=== PATIENT | female | born 1980 | race Hispanic/Latino ===

== ENCOUNTER 2018-06-28 20:55 | Inpatient (IN) | payer MEDICAID, OTHER, SELFPAY ==
[2018-06-28 21:29] VITALS: BMI 39.6
[2018-06-28] MEDS: Lactated Ringer's 1,000 ML IV SCH (21:45)
[2018-06-28] MEDS ORDERED: Promethazine HCl 25 MG/ML VIAL IM PRN (22:48)
[2018-06-28] MEDS ORDERED: Acetaminophen 500 MG TAB PO PRN (22:48)
[2018-06-28] MEDS ORDERED: Ondansetron HCl/PF 4 MG/2 ML Vial IVP PRN (22:48)
[2018-06-28] MEDS ORDERED: Lidocaine 1% (PF) 30 ML VIAL SC PRN (22:48)
[2018-06-28] MEDS ORDERED: NS / Oxytocin 40 units/1000ml 1,000 ML IV PRN (22:48)
[2018-06-28] MEDS ORDERED: Misoprostol 100 MCG TAB VAG SCH (23:00)
[2018-06-28 23:10] LABS: Hemoglobin 12.8 g/dL (12.0-16.0); Mean Corpuscular HGB CONC 35.5 g/dL (32.0-36.0); Mean Corpuscular Hemoglobin 32.5 pg (27.0-31.0); Mean Corpuscular Volume 91.5 fL (78.0-98.0); Mean Platelet Volume 9.7 fL (7.4-10.4); Platelet Count 147 thou/uL (130-400); RBC Distribution Width 12.6 % (11.5-14.5); Red Blood Cell (RBC) Count 3.94 mill/uL (4.20-5.40); White Blood Cell (WBC) Count 9.2 thou/uL (4.8-10.8)
[2018-06-28 23:34] LABS: Syphilis Antibody Nonreactive (Nonreactive); Syphilis Antibody Index 0.06 S/CO (<1.00 Non-Reactive)
[2018-06-28 23:45] LABS: HBSAg Index 0.19 S/CO (0-0.99); Hep B Surf Ag Non-Reactive S/CO (NonReactive)
--- NOTE | 2018-06-29 00:01 | PDOC.FPROB ---
FMR OB H&P: HPI - History of Present Illness Chief Complaint: Elective IOL Indentification: History of Present Illness: at at 40.1 here for elective IOL. Is seen at care clinic. Denies LOF, VB, endorses FB and contractions 10 times in one hour. Primary Care Physician: Dr. Simon FMR OB H&P: Current - Care : 4 Para: 1 Gestational age: 40.1 Due date: 06/27 Dating Criteria: 7wk sono - OB Labs Blood type: O RH: positive Antibody Screen: negative HIV: negative RPR: negative HepBsAg: negative Rubella: immune Quad screen: negative Gonorrhea: negative Chlamydia: negative (chlamydia negative (05/27)) Pap Smear: NILM, HPV negative 1 hour gtt: 190 3 hour GTT: 145 GBS: negative - Anatomy Survey Anatomy survey: no abnormalities noted FMR OB H&P: History - Past Medical History PMH: None - OB History OB History: 1. 1, 12 wks, SAB 2. 11/25/13, 39wks, VAVD for prolonged 2nd stage, PPROM w/o chorio, [id number] 3. 8/11/19, 8 wks, SAB - [employer]ER History [employer] History: 1. Pap smear: NILM, HPV negative - Surgical History Sx History: Denies - Social History Social History: Denies tobacco, etoh, drug use - Family History Family History: HTN, denies DM FMR OB H&P: Medications - Current Home Medications: Medication Instructions Recorded Confirmed Type Prenat Vit Comb.10/Iron/FA/DHA 1 each PO DAILY 11/24/13 06/28/18 History [PNV-OB with DHA Combo Pack] Allergies/Adverse Reactions: Allergies Allergy/AdvReac Type Severity Reaction Status Date / Time No Known Allergies Allergy Verified 06/28/18 21:58 FMR OB H&P: ROS - Review of Systems General: denies: fever/chills, weight/appetite/sleep changes Eyes: denies: eye pain, double vision ENT: denies: nasal congestion, rhinorrhea, sore throat Cardiovascular: reports: edema. denies: chest pain, palpitation Respiratory: denies: cough, congestion, shortness of breath Gastrointestinal: denies: abdominal pain, indigestion, nausea, vomiting, diarrhea, constipation Genitourinary (Female): reports: contractions. denies: vaginal bleeding, vaginal pressure Musculoskeletal: denies: pain, stiffness Neurologic: denies: syncope, headache Integumentary: denies: itching, rash Endocrine: denies: heat intolerance, polydipsia Hematologic/Lymphatic: denies: prolonged or excessive bleeding Psychological: denies: depression, anxiety FMR OB H&P: Vital Signs - Maternal Vital signs: Vital Signs - First Documented Temp Pulse Resp BP Pulse Ox 98.5 F 76 18 120/68 99 06/28/18 21:21 06/28/18 21:21 06/28/18 21:21 06/28/18 21:21 06/28/18 21:21 - Heart Tones Baseline: 145 Variability: moderate Acceleration: present Category: category 1 [place] contractions every: 4-min FMR OB H&P: Physical Exam - Physical Exam General: NAD, awake, alert and oriented HEENT: normocephalic and atraumatic, EOMI, MMM, no scleral icterus Neck: supple Chest: non-tender to palpation Heart: RRR, normal S1/S2, no murmurs/rubs/gallops General: CTAB, no respiratory distress, no wheezing, no retractions Abdomen: gravid, non-tender Musculoskeletal: pulses present, FROM in all four extremities Neurological: cranial nerves II through XII intact Skin: no rash, good tugor, capillary refill <2 seconds Lymphatic: no unusual bruising or bleeding, no purpura Psychiatric: normal mood and affect - Pelvic Exam Vulva: normal hair distribution SVE: cl/t/h Talavera score: 0 Presentation: cephalic FMR OB H&P: Results - Labs Lab results: Laboratory Results - last 24 hr 06/28/18 06/28/18 06/28/18 22:02 22:02 22:02 WBC RBC Hgb Hct MCV MCH MCHC RDW Plt Count MPV POC Glucose Syphilis IgG/IgM Ab Nonreactive Hep Bs Antigen Non-Reactive Blood Type O POSITIVE Antibody Screen NEGATIVE 06/28/18 06/28/18 22:02 23:01 WBC 9.2 RBC 3.94 L Hgb 12.8 Hct 36.1 MCV 91.5 MCH 32.5 H MCHC 35.5 RDW 12.6 Plt Count 147 MPV 9.7 POC Glucose 88 Syphilis IgG/IgM Ab Hep Bs Antigen Blood Type Antibody Screen FMR OB H&P: A/P - Problem List (1) Supervision of normal IUP (intrauterine ) in multigravida Current Visit: Yes Status: Acute Code(s): Z34.80 - ENCOUNTER FOR SUPRVSN OF NORMAL , UNSP TRIMESTER (2) AMA (advanced maternal age) multigravida 35+ Current Visit: Yes Status: Acute Code(s): O09.529 - SUPERVISION OF ELDERLY MULTIGRAVIDA, UNSPECIFIED TRIMESTER (3) GDM (gestational diabetes mellitus) Current Visit: Yes Status: Acute Code(s): O24.419 - GESTATIONAL DIABETES MELLITUS IN , UNSP CONTROL Disposition: 37 yo at 40.1 here for elective IOL 1. sIUP, term in elderly multigravida - cl/t/h @ 2300 -U/S from records done 06/25 show EFW at 87% -Will admit for elective IOL -Will give cytotec 15mg x1 now, reassess in 3 hours. If talavera score still not ideal, will give another dose of cytotec. 2. A1DM -diet controlled, has been well controlled per records and glucose home logs -plan for accuchecks to monitor 3. AMA 4. Hx of VAVD for prolonged second stage; PROM w/o chorio 5. H/o of recurrent chlamydia -Chlamydia x3 during , treated with azithromycin -mos recent labs on 05/27 show negative chlamydia Discussion: Date/Time: 06/29/18 0000 This H&P was discussed with [] and [] who agree with the above documentation and plan.
--- NOTE | 2018-06-29 02:30 | PDOC.LDPN ---
Labor & Delivery Progress Note - Subjective Subjective: comfortable, vaginal pressure - Objective Vital signs reviewed and normal: yes General: NAD, resting Dilation: 2 Effacement: 0% Station: -3 FHT: category 1 [place] contractions every: 3min - Assessment (1) Supervision of normal IUP (intrauterine ) in multigravida Code(s): Z34.80 - ENCOUNTER FOR SUPRVSN OF NORMAL , UNSP TRIMESTER Current Visit: Yes Status: Acute (2) AMA (advanced maternal age) multigravida 35+ Code(s): O09.529 - SUPERVISION OF ELDERLY MULTIGRAVIDA, UNSPECIFIED TRIMESTER Current Visit: Yes Status: Acute (3) GDM (gestational diabetes mellitus) Code(s): O24.419 - GESTATIONAL DIABETES MELLITUS IN , UNSP CONTROL Current Visit: Yes Status: Acute Plan: continue plan of care -: 37 yo at 40.1 here for elective IOL 1. sIUP, term in elderly multigravida - 2/t/-3 @ 0230 -U/S from records done 06/25 show EFW at 87% -did not give cytotec, will wait for contractions to space out. if has not made progression in AM can consider balloon dilation 2. A1DM -diet controlled, has been well controlled per records and glucose home logs -plan for accuchecks to monitor 3. AMA 4. Hx of VAVD for prolonged second stage; PROM w/o chorio 5. H/o of recurrent chlamydia -Chlamydia x3 during , treated with azithromycin -mos recent labs on 05/27 show negative chlamydia
[2018-06-29] MEDS: Lactated Ringer's 1,000 ML IV SCH ×2 (04:52→19:03)
[2018-06-29] MEDS ORDERED: NS w/ Oxytocin 10 units 500 ML ONE (06:45)
[2018-06-29] MEDS ORDERED: Lidocaine 1% (PF) 30 ML VIAL SC PRN (06:47)
[2018-06-29] MEDS ORDERED: Ondansetron HCl/PF 4 MG/2 ML Vial IVP PRN ×2 (06:47→11:36)
[2018-06-29] MEDS ORDERED: Promethazine HCl 25 MG/ML VIAL IM PRN ×2 (06:47→11:36)
[2018-06-29] MEDS ORDERED: Butorphanol Tartrate 1 MG/ML VIAL ONE (06:56)
[2018-06-29] MEDS ORDERED: NS w/ Oxytocin 10 units 500 ML IV SCH (07:00)
--- NOTE | 2018-06-29 07:55 | PDOC.LDPN ---
Labor & Delivery Progress Note - Subjective Subjective: comfortable - Objective Vital signs reviewed and normal: yes General: NAD Uterine fundus: non tender Dilation: 2 Effacement: 25% Station: -3 FHT: category 1 (130/mod/accels) [place] contractions every: 2-3 min Procedures: cook balloon catheter placed at 0640 - Assessment (1) Supervision of normal IUP (intrauterine ) in multigravida Code(s): Z34.80 - ENCOUNTER FOR SUPRVSN OF NORMAL , UNSP TRIMESTER Current Visit: Yes Status: Acute (2) AMA (advanced maternal age) multigravida 35+ Code(s): O09.529 - SUPERVISION OF ELDERLY MULTIGRAVIDA, UNSPECIFIED TRIMESTER Current Visit: Yes Status: Acute (3) GDM (gestational diabetes mellitus) Code(s): O24.419 - GESTATIONAL DIABETES MELLITUS IN , UNSP CONTROL Current Visit: Yes Status: Acute Plan: continue plan of care -: 37 yo at 40.1 here for elective IOL 1. sIUP, term in elderly multigravida - 12/28/-3 @ 0630 -U/S from records done 06/25 show EFW at 87% -desires epidural -FHT Cat I -no progression, still experiencing CTX q3min -started on pitocin to augment labor. will continue to monitor and recheck once hurtado bulb falls out. added IV stadol for pain control. 2. A1DM -diet controlled, has been well controlled per records and glucose home logs -POC here at hospital 3. AMA 4. Hx of VAVD for prolonged second stage; PROM w/o chorio 5. H/o of recurrent chlamydia -Chlamydia x3 during , treated with azithromycin -mos recent labs on 05/27 show negative chlamydia
[2018-06-29] MEDS ORDERED: Bupivacaine 0.5% 20 ML, fentaNYL Citrate/PF 400 MCG in Sodium Chloride 0.9% 72 ML EPIDURAL SCH (10:15)
[2018-06-29] MEDS ORDERED: DISCONTINUE ALL PREVIOUS NARCOTICS FS SCH (10:15)
[2018-06-29] MEDS ORDERED: Eucerin (Mineral Oil/Petrolatum,White) 30 gm Jar TOP PRN (11:36)
[2018-06-29] MEDS ORDERED: ePHEDrine/0.9% NaCl/PF SYRINGE 50 mg/10 ml SLOW IVP PRN (11:36)
[2018-06-29] MEDS ORDERED: Lactated Ringer's 500 ML IV PRN (11:36)
[2018-06-29] MEDS ORDERED: Acetaminophen 325 MG TAB PO PRN (11:36)
[2018-06-29] MEDS ORDERED: Naloxone HCl 0.4 mg/ml Vial IVP PRN ×2 (11:36)
[2018-06-29] MEDS ORDERED: diphenhydrAMINE 50 MG/ML VIAL IVP PRN (11:36)
[2018-06-29] MEDS ORDERED: Communication Order-Pharmacy FS SCH (11:45)
--- NOTE | 2018-06-29 17:23 | PDOC.LDPN ---
Labor & Delivery Progress Note - Subjective Subjective: comfortable, no concerns - Objective Vital signs reviewed and normal: yes General: NAD, resting, breathing through contractions Uterine fundus: non tender Dilation: 3 Effacement: 50% Station: -3 FHT: category 1 - Assessment (1) AMA (advanced maternal age) multigravida 35+ Code(s): O09.529 - SUPERVISION OF ELDERLY MULTIGRAVIDA, UNSPECIFIED TRIMESTER Current Visit: Yes Status: Acute (2) GDM (gestational diabetes mellitus) Code(s): O24.419 - GESTATIONAL DIABETES MELLITUS IN , UNSP CONTROL Current Visit: Yes Status: Acute (3) Supervision of normal IUP (intrauterine ) in multigravida Code(s): Z34.80 - ENCOUNTER FOR SUPRVSN OF NORMAL , UNSP TRIMESTER Current Visit: Yes Status: Acute -: This is a 37 yo F @ 40.1 wks here for elective IOL. Term IUP - Started on pit, had a few variable decelerations, so pitocin was stopped. - Epidural in place - U/S from records done 06/25 show EFW at 87% - FHT: Cat 1 with variable decelerations. Ctx every 3-5 min. - Last check at 1600 was 3/50/-3. Will recheck at 1800 GDM - Diet controlled, has been well controlled per records and glucose home logs - Will monitor glucose q12. - Will continue to monitor VS AMA Hx of VAVD for prolonged second stage; PROM w/o chorio Hx of recurrent chlamydia - Chlamydia x3 during , treated with azithromycin - most recent labs on 05/27 show negative chlamydia <Elaine Thoams - Last Filed: 06/29/18 17:24> Attending Addendum - Attending Addendum Date/Time: 06/29/18 1819 I personally evaluated the patient and discussed the management with I agree with the History, Examination, Assessment and Plan documented above with any addition or exceptions noted below. <Jordon Sow - Last Filed: 06/29/18 18:19>
--- NOTE | 2018-06-29 19:14 | PDOC.LDPN ---
Labor & Delivery Progress Note - Subjective Subjective: comfortable - Objective Vital signs reviewed and normal: yes General: NAD, resting Uterine fundus: non tender SVE: 19:00 by Betzy Dilation: 4 Effacement: 50% Station: -3 FHT: category 2, variable decelerations (x1 since last note), late decelerations (x1), variability present [place] contractions every: q3 min - Assessment (1) Term Code(s): Z34.80 - ENCOUNTER FOR SUPRVSN OF NORMAL , UNSP TRIMESTER Current Visit: Yes Status: Acute (2) GDM (gestational diabetes mellitus) Code(s): O24.419 - GESTATIONAL DIABETES MELLITUS IN , UNSP CONTROL Current Visit: Yes Status: Acute (3) AMA (advanced maternal age) multigravida 35+ Code(s): O09.529 - SUPERVISION OF ELDERLY MULTIGRAVIDA, UNSPECIFIED TRIMESTER Current Visit: Yes Status: Acute Plan: continue plan of care, labor augmentation, pitocin for augmentation -: This is a 37 yo F @ 40.1 wks here for elective IOL. Term IUP - Started on pit, had a few variable decelerations, so pitocin was stopped. Pit was restarted approximately 1 hour ago and was slowly titrated up to 4U. Tolerating well currently. One late deceleration noted after sitting patient up in bed, but none since. Monitor closely. D/c pit if not tolerating. - Epidural in place - U/S from records done 06/25 show EFW at 87% - FHT: Cat 1 with variable decelerations. Ctx every 3-5 min. - Last check at 1900 was 4/50/-3. Consider recheck in 2 hours - Bulging bag, too high and ballotable to rupture at this time; consider AROM and placement of IUPC at next check if favorable GDM - Diet controlled, has been well controlled per records and glucose home logs - Will continue to monitor VS AMA Hx of VAVD for prolonged second stage; PROM w/o chorio Hx of recurrent chlamydia - Chlamydia x3 during , treated with azithromycin - most recent labs on 05/27 show negative chlamydia
[2018-06-29] MEDS: fentaNYL Citrate/PF 400 MCG, Bupivacaine 0.5% 20 ML in Sodium Chloride 0.9% 72 ML EPIDURAL SCH (19:25)
[2018-06-30] MEDS: Lactated Ringer's 1,000 ML IV SCH ×3 (00:28→16:41)
--- NOTE | 2018-06-30 02:34 | PDOC.LDPN ---
Labor & Delivery Progress Note - Subjective Subjective: comfortable, vaginal pressure - Objective Vital signs reviewed and normal: yes General: NAD Dilation: 7 Effacement: 90% Station: -1 FHT: variable decelerations, late decelerations [place] contractions every: 4-5min AROM: meconium stained fluid (light mec) - Assessment (1) Supervision of normal IUP (intrauterine ) in multigravida Code(s): Z34.80 - ENCOUNTER FOR SUPRVSN OF NORMAL , UNSP TRIMESTER Current Visit: Yes Status: Acute (2) AMA (advanced maternal age) multigravida 35+ Code(s): O09.529 - SUPERVISION OF ELDERLY MULTIGRAVIDA, UNSPECIFIED TRIMESTER Current Visit: Yes Status: Acute (3) GDM (gestational diabetes mellitus) Code(s): O24.419 - GESTATIONAL DIABETES MELLITUS IN , UNSP CONTROL Current Visit: Yes Status: Acute -: 37 yo F @ 40.1 wks here for elective IOL. sIUP, term -PIt was increased but experienced decels, so pit was decreased to 6 which was well tolerated. There were a few more variable/late decels occuring with position change. Patient SVE showed progression to 7/80/-1. IUPC and FES were placed. AROM at 0130 showing light mec. After repositioning decels resolved. - Epidural in place - U/S from records done 06/25 show EFW at 87% - FHT: Cat 1 with variable decelerations. Ctx every 3-5 min. - Consider recheck in 2 hours to continue to monitor for cervical progression GDM - Diet controlled, has been well controlled per records and glucose home logs - Will continue to monitor VS AMA Hx of VAVD for prolonged second stage; PROM w/o chorio Hx of recurrent chlamydia - Chlamydia x3 during , treated with azithromycin - most recent labs on 05/27 show negative chlamydia
[2018-06-30] MEDS: fentaNYL Citrate/PF 400 MCG, Bupivacaine 0.5% 20 ML in Sodium Chloride 0.9% 72 ML EPIDURAL SCH (03:10)
--- NOTE | 2018-06-30 07:43 | PDOC.LDPN ---
Labor & Delivery Progress Note - Subjective Subjective: comfortable - Objective Vital signs reviewed and normal: yes General: NAD, resting, breathing through contractions Uterine fundus: non tender Dilation: 8 Effacement: 90% Station: -1 FHT: category 3, variable decelerations [place] contractions every: every 3-4 min Other exam findings: malpresentation- OT AROM: meconium stained fluid IUPC placed: yes FSE placed: yes Resuscitative measures: maternal position change - Assessment (1) AMA (advanced maternal age) multigravida 35+ Code(s): O09.529 - SUPERVISION OF ELDERLY MULTIGRAVIDA, UNSPECIFIED TRIMESTER Current Visit: Yes Status: Acute (2) GDM (gestational diabetes mellitus) Code(s): O24.419 - GESTATIONAL DIABETES MELLITUS IN , UNSP CONTROL Current Visit: Yes Status: Acute (3) Supervision of normal IUP (intrauterine ) in multigravida Code(s): Z34.80 - ENCOUNTER FOR SUPRVSN OF NORMAL , UNSP TRIMESTER Current Visit: Yes Status: Acute -: This is a 37 yo F at 40.2wks who is here for [facility] now requiring c- section. Term IUP - PIt was increased but experienced decels, so pit was decreased to 6 which was well tolerated. There were a few more variable/late decels occuring with position change. - IUPC and FES were placed. AROM at 0130 showing light mec. After repositioning decels resolved but returned between [id number] - Patient SVE showed progression to /-1 @ 0630. - Epidural in place - U/S from records done 06/25 show EFW at 87% - FHT: Cat 3 with recurrent variable decelerations. Ctx every 3-5 min. - Discussed with patient need for c section as the FHT were non-reassuring. The patient also has other co-morbidities including GDM and AMA that compounded with the FHT indicate . The risks and benefits were discussed in depth with the patient in her [place] language. She was given ample time to ask questions about the procedure. We stayed with her at the bedside to address her questions. GDM - Diet controlled, has been well controlled per records and glucose home logs - Will continue to monitor VS AMA Hx of VAVD for prolonged second stage; PROM w/o chorio Hx of recurrent chlamydia - Chlamydia x3 during , treated with azithromycin - most recent labs on 05/27 show negative chlamydia <Elaine Thomas - Last Filed: 06/30/18 07:46> Attending Addendum - Attending Addendum Date/Time: 06/30/18 0697 I personally evaluated the patient and discussed the management with Dr. Thomas I agree with the History, Examination, Assessment and Plan documented above with any addition or exceptions noted below. <Jordon Sow - Last Filed: 06/30/18 15:17>
[2018-06-30] MEDS ORDERED: Bicitra 30 ML UDCUP ONE (07:59)
[2018-06-30] MEDS ORDERED: CEFAZOLIN/Water 2 GM/20 ML SYRINGE ONE (07:59)
[2018-06-30] MEDS: Azithromycin 500 MG in Sodium Chloride 0.9% 250 ML 250 ML IVPB SCH (09:12)
[2018-06-30] MEDS ORDERED: CEFAZOLIN/Water 2 GM/20 ML SYRINGE SLOW IVP SCH (09:30)
[2018-06-30] MEDS ORDERED: CEFAZOLIN 2 GM in Sodium Chloride 0.9% 100 ML IVPB SCH (09:30)
[2018-06-30] MEDS ORDERED: Lidocaine 2% PF Inj 2 ML VIAL ONE (09:33)
--- NOTE | 2018-06-30 09:57 | PDOC.EVN ---
Event Note - Event Note Event Note: Attending Note: 37 y/o female has been here for several days with attempted IOL. Has received cytotec followed by Verito ballon followed by Pitocin. Had meconium noted. Non-reassuring FHT responded to interventions of reducing pitiocin, fluids and positional change. First stage has been markedly dysfunctional - likely mal-presentation (OP or OT) Currently 7-8 cm dil but station is -3 (at most) Given dysfunctional pattern of progress over > 2 days, demonstrated non- reassuring FHT, lack of descent and EFW 4000g I believe successful, safe vaginal delivery is unlikely and that it would be unwise to aggressively pursue this further. We have previously discussed R/B/A with the patient in her [place] language. She has had ample opportunity to ask questions and can provide informed consent.
[2018-06-30] MEDS ORDERED: Oxytocin 10 UNITS/ML VIAL ONE (10:09)
[2018-06-30] MEDS ORDERED: Ketorolac Tromethamine 30 MG/ML VIAL ONE (10:27)
[2018-06-30] MEDS ORDERED: Dexamethasone 4 mg/ml Vial ONE (10:27)
[2018-06-30] MEDS ORDERED: Ondansetron HCl/PF 4 MG/2 ML Vial ONE (10:27)
[2018-06-30] MEDS ORDERED: Fentanyl 100 MCG/2 ML VIAL ONE (10:49)
[2018-06-30] MEDS ORDERED: Ketamine 50 MG/ML VIAL ONE (10:57)
[2018-06-30] MEDS ORDERED: Methylergonovine 0.2 MG/ML VIAL ONE (11:00)
[2018-06-30] MEDS ORDERED: Midazolam HCl 2 mg/2 ml Vial ONE (11:04)
[2018-06-30] MEDS ORDERED: Carboprost 250 MCG/ML AMP ONE (11:08)
[2018-06-30] MEDS ORDERED: Morphine PF 1 MG/ML SYR ONE (11:28)
[2018-06-30] MEDS ORDERED: Adacel (T-DAP) 0.5 ML VIAL IM ONE (11:37)
[2018-06-30] MEDS ORDERED: diphenhydrAMINE 25 MG CAP PO PRN (11:37)
[2018-06-30] MEDS ORDERED: Diphenoxylate HCl/Atropine Tablet PO PRN (11:39)
[2018-06-30] MEDS ORDERED: Ondansetron HCl/PF 4 MG/2 ML Vial IVP PRN ×2 (11:48)
[2018-06-30] MEDS ORDERED: Promethazine HCl 25 MG/ML VIAL IM PRN (11:48)
[2018-06-30] MEDS ORDERED: Eucerin (Mineral Oil/Petrolatum,White) 30 gm Jar TOP PRN (11:48)
[2018-06-30] MEDS ORDERED: Naloxone HCl 0.4 mg/ml Vial IV PRN (11:48)
[2018-06-30] MEDS ORDERED: Meperidine HCl/PF 25 MG/ML VIAL SLOW IVP PRN (11:48)
[2018-06-30] MEDS ORDERED: HYDROmorphone 2 MG/ML VIAL SLOW IVP PRN (11:48)
[2018-06-30] MEDS ORDERED: diphenhydrAMINE 50 MG/ML VIAL IVP PRN (11:48)
[2018-06-30] MEDS ORDERED: Promethazine HCl 25 MG SUPP PR PRN (11:48)
[2018-06-30] MEDS ORDERED: Naloxone HCl 0.4 mg/ml Vial IVP PRN ×2 (11:48)
[2018-06-30] MEDS ORDERED: Communication Order-Pharmacy FS SCH (12:00)
[2018-06-30] MEDS ORDERED: Ketorolac Tromethamine 30 MG/ML VIAL IVP SCH (12:00)
[2018-06-30] MEDS ORDERED: Meperidine HCl/PF 25 MG/ML VIAL ONE (12:03)
[2018-06-30] MEDS ORDERED: Diphenoxylate HCl/Atropine Tablet PO SCH (12:45)
[2018-06-30] MEDS ORDERED: CEFAZOLIN 1 GM in Sodium Chloride 0.9% 100 ML IVPB SCH (14:00)
[2018-06-30] MEDS: Ketorolac Tromethamine 30 MG/ML VIAL IVP PRN (14:30)
[2018-06-30] MEDS: Ferrous Sulfate 325 MG TAB PO SCH (18:17)
[2018-06-30] MEDS: Docusate Calcium (SURFAK) 240 MG CAP PO SCH (21:52)
[2018-06-30] MEDS ORDERED: HYDROcodone/Acetaminophen 5/325 mg Tablet PO PRN ×2 (23:59)
[2018-07-01] MEDS: Lactated Ringer's 1,000 ML IV SCH ×3 (00:50→15:13)
[2018-07-01] MEDS: Ketorolac Tromethamine 30 MG/ML VIAL IVP PRN (02:52)
[2018-07-01 06:33] LABS: Hemoglobin 9.4 g/dL (12.0-16.0); Mean Corpuscular HGB CONC 33.9 g/dL (32.0-36.0); Mean Corpuscular Hemoglobin 31.9 pg (27.0-31.0); Mean Corpuscular Volume 93.9 fL (78.0-98.0); Mean Platelet Volume 9.4 fL (7.4-10.4); Platelet Count 113 thou/uL (130-400); RBC Distribution Width 12.8 % (11.5-14.5); Red Blood Cell (RBC) Count 2.96 mill/uL (4.20-5.40); White Blood Cell (WBC) Count 17.6 thou/uL (4.8-10.8)
--- NOTE | 2018-07-01 07:20 | PDOC.PP ---
Post Progress Note Post Day #: 1 Subjective: Pt doing well. Having some pain. Reports being well controlled with medication regimen. Pt has only eaten liquids. Has gotten up and moved around. Denies any dizziness or lightheadness. Reports bleeding less than a period. Pt reports and states like milk is not coming down. Denies any leg swelling or pain in legs when walking PO intake tolerated: yes Flatus: yes Ambulation: yes Vital Signs (12 hours) Temp Pulse Resp BP Pulse Ox 07/01/18 04:17 98.0 F 95 20 106/50 L 07/01/18 00:30 98.9 F 111 H 20 105/51 L 96 06/30/18 19:55 99.1 F 101 H 20 118/59 L 97 Weight Weight 86.183 kg - Physical Examination General: NAD Cardiovascular: no m/r/g, RRR Respiratory: clear to auscultation bilaterally, non-labored breathing Abdominal: + bowel sounds, lochia (less than period), no distention, appropriately TTP Fundus firm & at: umbilicus Extremities: negative homans (B) Skin: no rash Deviation from normal: No redness noted. CS incicison serosanguinous drainage noted. [place] in pl Neurological: no gross focal deficits Psychiatric: A&Ox3, normal affect Result Diagrams: 07/01/18 06:03 Additional Labs: Post Labs Blood Type O POSITIVE 06/28/18 22:02 Hep Bs Antigen Non-Reactive S/CO (NonReactive) 06/28/18 22:02 (1) hemorrhage Code(s): O72.1 - OTHER IMMEDIATE HEMORRHAGE Status: Acute (2) AMA (advanced maternal age) multigravida 35+ Code(s): O09.529 - SUPERVISION OF ELDERLY MULTIGRAVIDA, UNSPECIFIED TRIMESTER Status: Acute (3) GDM (gestational diabetes mellitus) Code(s): O24.419 - GESTATIONAL DIABETES MELLITUS IN , UNSP CONTROL Status: Acute Qualifiers: Gestational diabetes mellitus control: diet-controlled (4) Term Code(s): Z34.80 - ENCOUNTER FOR SUPRVSN OF NORMAL , UNSP TRIMESTER Status: Acute - Assessment/Plan at at 40.1 delivered a TAGA M via primary LTCS @ 10:44 on 06/30/17. Delivered due to failure progress and non-reassuring FHT -Mom doing well. Continue routine PP care. Advised pt to eat as can. -Pain being controlled with current regimen -Up and walking and doing well. Denies any fever chills. -Incision intact. Some light drainage noted at this time. Will keep jose raul in for 5 days. PPH -QBL 1505. Hgb today 9.4. Pt has been up and walking and denies any dizziness or lightheadness. -Pt having some diarrhea due to methergine given yesterday. Advised to use lomotil as needed GDMA1 -Diet controlled -Accuchecks normal. Can stop at this time and f/u at 6 week pp visit Recurrent chlamydia infxn -most recent BERNARD negative. <Ryan Simon - Last Filed: 07/01/18 07:18> Vital Signs (12 hours) Temp Pulse Resp BP 07/01/18 12:00 98.4 F 95 20 07/01/18 11:25 98.4 F 95 20 111/62 07/01/18 08:00 98.8 F 95 20 07/01/18 07:44 98.8 F 95 20 100/54 L 07/01/18 04:17 98.0 F 95 20 106/50 L Weight Weight 86.183 kg Result Diagrams: 07/01/18 06:03 Additional Labs: Post Labs Blood Type O POSITIVE 06/28/18 22:02 Hep Bs Antigen Non-Reactive S/CO (NonReactive) 06/28/18 22:02 <Jordon Sow - Last Filed: 07/01/18 13:14> Attending Addendum - Attending Addendum Date/Time: 07/01/18 1313 I personally evaluated the patient and discussed the management with Dr. Thomas I agree with the History, Examination, Assessment and Plan documented above with any addition or exceptions noted below. Doing will POD #1. Pain controlled. Wound looks great. Advance diet and activities as tolerated. <Jordon Sow - Last Filed: 07/01/18 13:14>
[2018-07-01] MEDS: HYDROcodone/Acetaminophen 5/325 mg Tablet PO PRN ×2 (10:13→18:41)
[2018-07-01] MEDS: Docusate Calcium (SURFAK) 240 MG CAP PO SCH ×2 (10:14→21:52)
[2018-07-01] MEDS: Ferrous Sulfate 325 MG TAB PO SCH ×2 (10:14→18:06)
[2018-07-01] MEDS: Azithromycin 500 MG in Sodium Chloride 0.9% 250 ML 250 ML IVPB SCH (10:28)
[2018-07-01] MEDS: Ibuprofen 800 MG TAB PO SCH ×2 (13:55→21:52)
[2018-07-01] MEDS: Simethicone Chewable 80 MG TAB PO PRN (18:42)
[2018-07-02] MEDS: Simethicone Chewable 80 MG TAB PO PRN (00:56)
[2018-07-02] MEDS: Lactated Ringer's 1,000 ML IV SCH ×3 (03:11→15:31)
[2018-07-02] MEDS: HYDROcodone/Acetaminophen 5/325 mg Tablet PO PRN (05:47)
[2018-07-02] MEDS: Ibuprofen 800 MG TAB PO SCH ×3 (05:47→22:35)
--- NOTE | 2018-07-02 07:20 | PDOC.PP ---
Post Progress Note Post Day #: 2 Subjective: Pt doing well this morning. Says pain is well controlled. Has been up and walking in the halls, denies any SOB. Pt reports having mild non productive cough. Denies any fever or chills. Reports mild bilateral leg swelling. tolerating PO. going well. PO intake tolerated: yes Flatus: yes Ambulation: yes Vital Signs (12 hours) Temp Pulse Resp BP Pulse Ox 07/02/18 04:17 99.9 F H 98 20 108/59 L 07/02/18 00:50 98.2 F 92 20 106/59 L 95 07/01/18 20:22 98.4 F 103 H 20 118/62 96 Weight Weight 86.183 kg - Physical Examination General: NAD Cardiovascular: no m/r/g, RRR Respiratory: clear to auscultation bilaterally, non-labored breathing Abdominal: + bowel sounds, lochia, no distention, appropriately TTP Extremities: negative homans (B) (No swelling noted. No pain to palpation of LE) Skin: CS incision dry & intact (No sign of bleeding. Intact. No redness), no rash Neurological: no gross focal deficits Psychiatric: A&Ox3, normal affect Result Diagrams: 07/01/18 06:03 Additional Labs: Post Labs Blood Type O POSITIVE 06/28/18 22:02 Hep Bs Antigen Non-Reactive S/CO (NonReactive) 06/28/18 22:02 (1) hemorrhage Code(s): O72.1 - OTHER IMMEDIATE HEMORRHAGE Status: Acute (2) AMA (advanced maternal age) multigravida 35+ Code(s): O09.529 - SUPERVISION OF ELDERLY MULTIGRAVIDA, UNSPECIFIED TRIMESTER Status: Acute (3) GDM (gestational diabetes mellitus) Code(s): O24.419 - GESTATIONAL DIABETES MELLITUS IN , UNSP CONTROL Status: Acute Qualifiers: Gestational diabetes mellitus control: diet-controlled (4) Term Code(s): Z34.80 - ENCOUNTER FOR SUPRVSN OF NORMAL , UNSP TRIMESTER Status: Acute - Assessment/Plan at at 40.1 delivered a TAGA M via primary LTCS @ 10:44 on 06/30/17. Delivered due to failure progress and non-reassuring FHT -Mom doing well. Continue routine PP care. Advised pt to eat as can. -Pain being controlled with current regimen -Up and walking and doing well. Denies any fever chills. -Pt reports cough. Denies any SOB. No leg pain. Lungs CTA-B -Incision intact. No drainage or redness noted.. Will keep jose raul in for 5 days. PPH -QBL 1505. Hgb yesterday 9.4. Pt has been up and walking and denies any dizziness or lightheadness. -Pt having some diarrhea due to methergine given during procedure. Advised to use lomotil as needed GDMA1 -Diet controlled -Accuchecks mildly elevated. Can stop at this time and f/u at 6 week pp visit Recurrent chlamydia infxn -most recent BERNARD negative. <Ryan Simon - Last Filed: 07/02/18 07:22> Vital Signs (12 hours) Temp Pulse Resp BP 07/02/18 08:45 98.2 F 86 20 07/02/18 07:30 98.2 F 86 20 108/59 L 07/02/18 04:17 99.9 F H 98 20 108/59 L Weight Weight 86.183 kg Result Diagrams: 07/01/18 06:03 Additional Labs: Post Labs Blood Type O POSITIVE 06/28/18 22:02 Hep Bs Antigen Non-Reactive S/CO (NonReactive) 06/28/18 22:02 <Jordon Sow - Last Filed: 07/02/18 15:08> Attending Addendum - Attending Addendum Date/Time: 07/02/18 3891 I personally evaluated the patient and discussed the management with Dr. Simon I agree with the History, Examination, Assessment and Plan documented above with any addition or exceptions noted below. <Jordon Sow - Last Filed: 07/02/18 15:08>
--- NOTE | 2018-07-02 08:39 | DN-2 ---
DATE OF PROCEDURE: 06/30/2018 RESIDENT SURGEON: Dr. Ryan Simon, PGY-[address] Dimas Fernando, PGY-2. ATTENDING SURGEON: Jordon Sow M.D. PROCEDURE: Primary low transverse . PREOPERATIVE DIAGNOSES: 1. Term intrauterine . 2. Gestational diabetes class A1. 3. Advanced maternal age. 4. History of recurrent chlamydia. She was treated 3 times during and last BERNARD was negative. POSTOPERATIVE DIAGNOSES: 1. Term intrauterine . 2. Gestational diabetes class A1. 3. Advanced maternal age. 4. History of recurrent chlamydia. She was treated 3 times during and last BERNARD was negative 5. hemorrhage. ANESTHESIA: Spinal. INDICATION: The patient is a 37-year-old G4, P1-0-2-1 female at 40 and 1 weeks who required a primary low transverse due to nonreassuring heart tones having recurrent late and variables and also failure to progress. The patient stalled out in the +1 position. PROCEDURE IN DETAIL: After risks, benefits and alternatives were explained to the patient, she gave informed consent. Preoperative antibiotics included cefazolin 2 g IV and 500 mg of azithromycin. The patient was taken to the operating room and spinal anesthesia had already been initiated during induction of labor. She was placed in the supine position with a left tilt and prepped and draped in the usual sterile fashion. Pfannenstiel incision was made with a scalpel and carried down to the level of the fascia, which was sharply nicked. The fascial cut was extended bilaterally with Wheat scissors. The inferior and superior edges of the cut fascial edges were elevated with Kale clamps and the underlying rectus muscles were sharply and bluntly dissected free. The recti were divided digitally and retracted manually. The peritoneum was entered bluntly and retracted manually. Bladder blade was placed. Bladder flap was created with Metzenbaum scissors. A low transverse score was made with a scalpel and the uterus was entered in the midline with the scalpel. Clear fluid was seen. The hysterotomy was extended manually. The infant was noted to be vertex and was easily delivered by fundal pressure. Mouth and nares were bulb suctioned. Cord clamped and cut and grossly normal male was handed to the waiting nurse. Cord blood was obtained. Placenta was manually extracted and found to be intact with 3-vessel cord and discarded. The uterus was externalized and the endometrium was curetted with a dry lap. At this time, the patient had been induced and been in labor since Friday night , so had been in labor a couple days, uterus was boggy. She was oozing a little bit of blood. At this time, we first gave her 1 dose of tranexamic acid. Uterus was still boggy. We then also would give Methergine. The uterus was still boggy and then was given a dose of Hemabate. At this time, uterus finally would become firm. It firmed up while we were closing the bladder blade was then placed and the uterus was closed with a running locking 0 Vicryl suture and she also had a few/couple of [id number] sutures. Following this , hemostasis was noted. The uterus was internalized and the hysterotomy was again noted to be hemostatic and firm. Fascia was closed with a running nonlocking 0 Vicryl suture. The subcu tissue was irrigated and bleeders were treated with Bovie cautery. The skin was approximated with jose raul and a pressure dressing was placed. The subcu layer was closed with 3-0 chromic in a running fashion. The skin was approximated with jose raul and pressure dressing was placed. All counts were correct. The patient tolerated the procedure well and was taken to the recovery room in stable condition. As stated, during the closure of the uterus, the uterus was quite boggy. There was a little bit of excess oozing. The patient had a QBL of 1505 and had a little bit of hemorrhage. COMPLICATIONS: hemorrhage. SPECIMENS: Cord blood sent to lab for blood type. FINDINGS: Grossly normal male with Apgars of 8 and 9 respectively. Grossly normal placenta with three-vessel cord discarded. DRAINS: Pack catheter to gravity draining clear urine. MTDD
[2018-07-02] MEDS: Ferrous Sulfate 325 MG TAB PO SCH ×3 (10:22→22:35)
[2018-07-02] MEDS: Docusate Calcium (SURFAK) 240 MG CAP PO SCH ×2 (10:23→22:35)
[2018-07-03] MEDS: Lactated Ringer's 1,000 ML IV SCH ×2 (06:00→08:20)
[2018-07-03] MEDS: Ibuprofen 800 MG TAB PO SCH ×2 (06:01→14:18)
--- NOTE | 2018-07-03 07:19 | PDOC.PP ---
Post Progress Note Post Day #: 3 Subjective: Pt reports having cough. Have clear phlegm production. Also reports having runny nose. Inquiring more we find pt has had asthma in the past. 2-3 years ago she took montelukast. Pt denies any fever or chills. Denies any n/v/d/c. Pt up moving around. denies any dizziness or lightheadness. Pt reports pain being well controlled. PO intake tolerated: yes Flatus: yes Ambulation: yes Vital Signs (12 hours) Temp Pulse Resp BP 07/03/18 06:38 98.5 F 78 18 115/54 L 07/02/18 20:00 98.6 F 87 20 110/58 L Weight Weight 86.183 kg - Physical Examination General: NAD Cardiovascular: no m/r/g, RRR Deviation from normal: Expitory wheezes noted, some mild rales Abdominal: + bowel sounds, lochia (reports lochia less than normal period), no distention, appropriately TTP Fundus firm & at: below umbilicus Extremities: negative homans (B) Skin: no rash Neurological: no gross focal deficits Psychiatric: A&Ox3, normal affect Result Diagrams: 07/01/18 06:03 Additional Labs: Post Labs Blood Type O POSITIVE 06/28/18 22:02 Hep Bs Antigen Non-Reactive S/CO (NonReactive) 06/28/18 22:02 (1) hemorrhage Code(s): O72.1 - OTHER IMMEDIATE HEMORRHAGE Status: Acute (2) AMA (advanced maternal age) multigravida 35+ Code(s): O09.529 - SUPERVISION OF ELDERLY MULTIGRAVIDA, UNSPECIFIED TRIMESTER Status: Acute (3) GDM (gestational diabetes mellitus) Code(s): O24.419 - GESTATIONAL DIABETES MELLITUS IN , UNSP CONTROL Status: Acute (4) Term Code(s): Z34.80 - ENCOUNTER FOR SUPRVSN OF NORMAL , UNSP TRIMESTER Status: Acute - Assessment/Plan at at 40.1 delivered a TAGA M via primary LTCS @ 10:44 on 06/30/17. Delivered due to failure progress and non-reassuring FHT -Mom doing well. Continue routine PP care. \ -Pain being controlled with current regimen -Up and walking and doing well. Denies any fever chills. -Pt reports cough. Denies any SOB. No leg pain. Lungs CTA-B -Incision intact. No drainage or redness noted.. Will keep jose raul in for 5 days. PPH -QBL 1505. Hgb yesterday 9.4. Pt has been up and walking and denies any dizziness or lightheadness. -Pt having some diarrhea due to methergine given during procedure. Advised to use lomotil as needed Hx Asthma -Having cough and wheezing on lung exam. Reports runny nose -Will give duonebs at this time and see if cough improves. will give zyrtec for runny nose and help with symptoms -Will also get Cxray as pt is post op day 3 from surgery and want to rule out any infectious process. GDMA1 -Diet controlled -Accuchecks mildly elevated. Can stop at this time and f/u at 6 week pp visit Recurrent chlamydia infxn -most recent BERNARD negative. <Ryan Simon - Last Filed: 07/03/18 07:18> Vital Signs (12 hours) Temp Pulse Resp BP 07/03/18 08:15 98.3 F 89 20 129/72 07/03/18 07:51 98.3 F 89 20 07/03/18 06:38 98.5 F 78 18 115/54 L Weight Weight 86.183 kg Result Diagrams: 07/01/18 06:03 Additional Labs: Post Labs Blood Type O POSITIVE 06/28/18 22:02 Hep Bs Antigen Non-Reactive S/CO (NonReactive) 06/28/18 22:02 <Jordon Sow - Last Filed: 07/03/18 15:41> Attending Addendum - Attending Addendum Date/Time: 07/03/18 [id number] I personally evaluated the patient and discussed the management with I agree with the History, Examination, Assessment and Plan documented above with any addition or exceptions noted below. X-ray suggest vascular congestion. patient has signifcant LE pitting edema. Probably fine to D/C. Will give 20 mg lasix po for swelling. Home on Azithromycin and Proventil MDI. F/u 2-3 days for wound check. <Jordon Sow - Last Filed: 07/03/18 15:41>
[2018-07-03 08:16] VITALS: BP 129/72; TEMP 98.3
[2018-07-03] MEDS ORDERED: Loratadine 10 MG TAB PO SCH (09:00)
[2018-07-03] MEDS ORDERED: Cetirizine HCl 10 MG TAB PO SCH (09:00)
--- NOTE | 2018-07-03 10:09 | RAD ---
CHEST 2 VIEWS: HISTORY: Cough and wheezing. Postop. FINDINGS: Cardiac silhouette is magnified by projection. Pulmonary vasculature upper limits of normal. Medias tinum is midline. Patchy bibasilar infiltrates posteriorly, right greater than left. No evidence of pneumothorax or significant pleural fluid. IMPRESSION: Mild pulmonary vascular congestion. Patchy bibasilar infiltrates, right greater than left, may be re lated to borderline pulmonary vascular congestion. Clinical correlation regarding other signs and sy mptoms of superimposed bibasilar pneumonitis is required. Please consider continued radiographic fol lowup. POS: [facility]
[2018-07-03] MEDS ORDERED: Furosemide 20 MG TAB PO SCH (10:30)
[2018-07-03] MEDS: Ferrous Sulfate 325 MG TAB PO SCH (11:37)
[2018-07-03] MEDS: Docusate Calcium (SURFAK) 240 MG CAP PO SCH (11:37)
[2018-07-04] MEDS ORDERED: Azithromycin 250 MG TAB PO SCH (09:00)
== END 2018-07-03 15:00 | disposition home or self-care (01) | DRG 765 ==
LOC: L&D 20:55 → 3SW 06-30 13:53
PROVIDERS: ADMIT Family Medicine; ATTEND Family Medicine
PROC: 10D00Z1 Extraction of Products of Conception, Low, Open Approach (ICD-10-PCS; principal; 2018-06-30)
PROC: 4A1HXCZ Monitoring of Products of Conception, Cardiac Rate, External Approach (ICD-10-PCS; 2018-06-30)
PROC: 0U7C7ZZ Dilation of Cervix, Via Natural or Artificial Opening (ICD-10-PCS; 2018-06-30)
DX: O24.420 Gestational diabetes mellitus in childbirth, diet controlled (principal); O72.1 Other immediate postpartum hemorrhage; O48.0 Post-term pregnancy; Z3A.40 40 weeks gestation of pregnancy; O76 Abnormality in fetal heart rate and rhythm complicating labor and delivery; O62.0 Primary inadequate contractions; Z37.0 Single live birth; N85.8 Other specified noninflammatory disorders of uterus; O64.8XX0 Obstructed labor due to other malposition and malpresentation, not applicable or unspecified
CPT/HCPCS: 36415; 36416; 51702; 71046; 76815; 85027; 86780; 86850; 86900; 86901; 87340; C1726; J0456; J0595; J0690; J1100; J1885; J2175; J2210; J2250; J2274; J2405; J2550; J2590; J3010; J3490; J7050; J7620